=== PATIENT | male | born 1950 | race Caucasian/White ===

== ENCOUNTER 2016-09-03 23:28 | Emergency (ER) | payer MEDICARE ==
[2016-09-04] MEDS ORDERED: NS 0.9% 1000 ML* 1,000 ML IV ONE (00:15)
[2016-09-04] MEDS ORDERED: Ondansetron INJ* 2 MG/ML VIAL IV ONE (00:15)
[2016-09-04] MEDS ORDERED: Morphine INJ* 2 MG/ML 1 ML SYRINGE IV ONE (00:15)
[2016-09-04 01:01] LABS: Hematocrit 47 % (42-52); Hemoglobin 15.8 g/dl (14.0-18.0); Mean Corpuscular HGB Conc 33 g/dl (31-36); Mean Corpuscular Hemoglobin 30 pg (27-31); Mean Corpuscular Volume 88 fL (80-94); Mean Platelet Volume 9 um3 (7.4-10.4); Red Blood Count 5.34 10^6/ul (4.0-5.4); Red Cell Distribution Width 13 % (10.5-15); White Blood Count 14.5 10^3/ul (3.5-10.8)
[2016-09-04 01:08] LABS: Add Diff/Slide Review? Slide Review Added; Comments Flag Yes
[2016-09-04 01:14] LABS: Albumin 4.3 g/dL (3.2-5.2); BUN/Creatinine Ratio 20.7 (8-20); C Reactive Protein 7.63 mg/L (< 5.00); Calcium 10.1 mg/dL (8.6-10.3); EGFR African American 112.9 (>60); EGFR Non-African American 87.8 (>60); Globulin 2.8 g/dL (2-4); Potassium 3.9 mmol/L (3.5-5.0); Total Bilirubin 0.4 mg/dL (0.2-1.0); Total Protein 7.1 g/dL (6.4-8.9)
[2016-09-04 01:15] LABS: Urine Bilirubin Negative (Negative); Urine Glucose Negative (Negative); Urine Nitrite Negative (Negative)
--- NOTE | 2016-09-04 02:07 | ED ---
Surinder Solis Salem, scribed for Talon Jansen MD on 09/04/16 at 0027 . Abdominal Pain/Male - HPI Summary HPI Summary: Patient is a 66 y/o M who presents to the ED with epigastric pressure for the past 6 days. He states that his abd feels like it is about to explode. Pt reports taking Tums and antacid with little to no alleviation. He states that he contacted his PCP 2 days ago, but was not able to get an appointment and was sent here. He reports PMHx of an ulcer, but states that he does not typically have a problem with it. Pt has not seen actuarial science professor in 15 years. - History of Current Complaint Chief Complaint: EDAbdPain Stated Complaint: ABD PAIN Time Seen by Provider: 09/04/16 00:08 Hx Obtained From: Patient, Family/Supervisor In Charge Onset/Duration: Gradual Onset, Lasting Days, Still Present Timing: Lasting Days Severity Initially: Moderate Severity Currently: Moderate Pain Intensity: 7 Pain Scale Used: 0-10 Numeric Location: Epigastric Radiates: No Aggravating Factor(s): Nothing Alleviating Factor(s): Nothing Associated Signs And Symptoms: Positive: Negative - Allergies/Home Medications Allergies/Adverse Reactions: Allergies Allergy/AdvReac Type Severity Reaction Status Date / Time No Known Allergies Allergy Unverified 09/03/16 23:39 PMH/Surg Hx/FS Hx/Imm Hx Endocrine/Hematology History: Reports: Hx Diabetes Denies: Hx Thyroid Disease Cardiovascular History: Reports: Hx Angina, Hx Coronary Artery Disease - 2 STENTS Denies: Hx Hypercholesterolemia, Hx Hypertension, Hx Pacemaker/ICD, Hx Peripheral Vascular Disease, Other Cardiovascular Problems/Disorders Respiratory History: Denies: Hx Asthma GI History: Denies: Other GI Disorders History: Denies: Hx Renal Disease Musculoskeletal History: Denies: Hx Arthritis, Hx Rheumatoid Arthritis, Hx Osteoporosis Sensory History: Reports: Hx Contacts or Glasses - GLASSES Denies: Hx Cataracts, Hx Glaucoma, Hx Hearing Aid Opthamlomology History: Reports: Hx Contacts or Glasses - GLASSES Denies: Hx Cataracts, Hx Glaucoma Neurological History: Denies: Hx Headaches, Hx Seizures, Hx Transient Ischemic Attacks (TIA) Psychiatric History: Denies: Hx Anxiety, Hx Depression, Hx Panic Disorder - Cancer History Cancer Type, Location and Year: MELANOMA OF FACE/LIP REMOVED - Surgical History Surgery Procedure, Year, and Place: appendix 1966,. JANICE SHELL - CARDIAC STENT - SAFE FOR 1.5T ONLY, 1985 AND 1986. 2004, [facility]IL[facility]ECTOMY, [facility] Hx Anesthesia Reactions: No Infectious Disease History: Denies: Traveled Outside the [place] in Last 30 Days - Family History Known Family History: Positive: Cardiac Disease - Father. , Diabetes - Social History Alcohol Use: None Hx Substance Use: No Substance Use Type: Reports: None Hx Tobacco Use: Yes Smoking Status (MU): Current Every Day Smoker Amount Used/How Often: PACK A DAY Have You Smoked in the Last Year: Yes Review of Systems Negative: Fever Positive: Abdominal Pain All Other Systems Reviewed And Are Negative: Yes Physical Exam Triage Information Reviewed: Yes Vital Signs On Initial Exam: Initial Vitals Temp Pulse Resp BP Pulse Ox 97.4 F 92 16 103/73 93 09/03/16 23:30 09/03/16 23:30 09/03/16 23:30 09/03/16 23:30 09/03/16 23:30 Vital Signs Reviewed: Yes Appearance: Positive: Well-Appearing, No Pain Distress Skin: Positive: Warm Head/Face: Positive: Normal Head/Face Inspection Eyes: Positive: TEMO ENT: Positive: Hearing grossly normal Neck: Positive: Supple Respiratory/Lung Sounds: Positive: Breath Sounds Present Cardiovascular: Positive: RRR Abdomen Description: Positive: Soft, Other: - mild upper abd tenderness. Negative: Distended, Guarding Bowel Sounds: Positive: Present Musculoskeletal: Positive: Strength/ROM Intact Neurological: Positive: Alert, Oriented to Person Place, Time Diagnostics - Vital Signs Vital Signs Temp Pulse Resp BP Pulse Ox 09/03/16 23:30 97.4 F 92 16 103/73 93 - Laboratory Lab Results: Lab Results 09/04/16 09/04/16 09/04/16 Range/Units 00:50 00:50 00:50 WBC 14.5 H (3.5-10.8) 10^3/ul RBC 5.34 (4.0-5.4) 10^6/ul Hgb 15.8 (14.0-18.0) g/dl Hct 47 (42-52) % MCV 88 (80-94) fL MCH 30 (27-31) pg MCHC 33 (31-36) g/dl RDW 13 (10.5-15) % Plt Count 255 (150-450) 10^3/ul MPV 9 (7.4-10.4) um3 Neut % (Auto) 65.0 (38-83) % Lymph % (Auto) 20.7 L (25-47) % [place] % (Auto) 10.9 H (1-9) % Eos % (Auto) 2.6 (0-6) % Baso % (Auto) 0.8 (0-2) % Absolute Neuts (auto) 9.4 H (1.5-7.7) 10^3/ul Absolute Lymphs (auto) 3.0 (1.0-4.8) 10^3/ul Absolute Monos (auto) 1.6 H (0-0.8) 10^3/ul Absolute Eos (auto) 0.4 (0-0.6) 10^3/ul Absolute Basos (auto) 0.1 (0-0.2) 10^3/ul Absolute Nucleated RBC 0.01 10^3/ul Nucleated RBC % 0 Sodium 135 (133-145) mmol/L Potassium 3.9 (3.5-5.0) mmol/L Chloride 105 (101-111) mmol/L Carbon Dioxide 22 (22-32) mmol/L Anion Gap 8 (2-11) mmol/L BUN 18 (6-24) mg/dL Creatinine 0.87 (0.67-1.17) mg/dL Est GFR ( Amer) 112.9 (>60) Est GFR (Non-Af Amer) 87.8 (>60) BUN/Creatinine Ratio 20.7 H (8-20) Glucose 130 H (70-100) mg/dL Lactic Acid (0.5-2.0) mmol/L Calcium 10.1 (8.6-10.3) mg/dL Total Bilirubin 0.40 (0.2-1.0) mg/dL AST 16 (13-39) U/L ALT 15 (7-52) U/L Alkaline Phosphatase 71 (34-104) U/L C-Reactive Protein 7.63 H (< 5.00) mg/L Total Protein 7.1 (6.4-8.9) g/dL Albumin 4.3 (3.2-5.2) g/dL Globulin 2.8 (2-4) g/dL Albumin/Globulin Ratio 1.5 (1-3) Lipase 118 H (11.0-82.0) U/L Urine Color Yellow Urine Appearance Clear Urine pH 5.0 (5-9) Ur Specific [place] 1.016 (1.010-1.030) Urine Protein Negative (Negative) Urine Ketones Negative (Negative) Urine Blood Negative (Negative) Urine Nitrate Negative (Negative) Urine Bilirubin Negative (Negative) Urine Urobilinogen Negative (Negative) Ur Leukocyte Esterase Negative (Negative) Urine Glucose Negative (Negative) 09/04/16 Range/Units 00:50 WBC (3.5-10.8) 10^3/ul RBC (4.0-5.4) 10^6/ul Hgb (14.0-18.0) g/dl Hct (42-52) % MCV (80-94) fL MCH (27-31) pg MCHC (31-36) g/dl RDW (10.5-15) % Plt Count (150-450) 10^3/ul MPV (7.4-10.4) um3 Neut % (Auto) (38-83) % Lymph % (Auto) (25-47) % [place] % (Auto) (1-9) % Eos % (Auto) (0-6) % Baso % (Auto) (0-2) % Absolute Neuts (auto) (1.5-7.7) 10^3/ul Absolute Lymphs (auto) (1.0-4.8) 10^3/ul Absolute Monos (auto) (0-0.8) 10^3/ul Absolute Eos (auto) (0-0.6) 10^3/ul Absolute Basos (auto) (0-0.2) 10^3/ul Absolute Nucleated RBC 10^3/ul Nucleated RBC % Sodium (133-145) mmol/L Potassium (3.5-5.0) mmol/L Chloride (101-111) mmol/L Carbon Dioxide (22-32) mmol/L Anion Gap (2-11) mmol/L BUN (6-24) mg/dL Creatinine (0.67-1.17) mg/dL Est GFR ( Amer) (>60) Est GFR (Non-Af Amer) (>60) BUN/Creatinine Ratio (8-20) Glucose (70-100) mg/dL Lactic Acid 1.4 (0.5-2.0) mmol/L Calcium (8.6-10.3) mg/dL Total Bilirubin (0.2-1.0) mg/dL AST (13-39) U/L ALT (7-52) U/L Alkaline Phosphatase (34-104) U/L C-Reactive Protein (< 5.00) mg/L Total Protein (6.4-8.9) g/dL Albumin (3.2-5.2) g/dL Globulin (2-4) g/dL Albumin/Globulin Ratio (1-3) Lipase (11.0-82.0) U/L Urine Color Urine Appearance Urine pH (5-9) Ur Specific [place] (1.010-1.030) Urine Protein (Negative) Urine Ketones (Negative) Urine Blood (Negative) Urine Nitrate (Negative) Urine Bilirubin (Negative) Urine Urobilinogen (Negative) Ur Leukocyte Esterase (Negative) Urine Glucose (Negative) Result Diagrams: 09/04/16 00:50 09/04/16 00:50 Lab Statement: Any lab studies that have been ordered have been reviewed, and results considered in the medical decision making process. - CT Abd/Pelvis CT Interpretation Completed By: Radiologist - IMPRESSION: No definite evidence of acute pathology. - EKG 2340 EKG Interpretation: Sinus rhythm with APC's @ 87 bpm. Re-Evaluation - Re-Evaluation First Eval Change: Improved - results d/w pt Abdominal Pain Fem Course/Dx - Course Course Of Treatment: 66 y/o M presents with epigastric pressure for the past 6 days. Pt reports taking Tums and antacid with little to no alleviation. He reports PMHx of an ulcer. He received fluids, Morphine, and Zofran in ED course. EKG shows Sinus rhythm with APC's @ [address] shows, per radiology, IMPRESSION: No definite evidence of acute pathology. Pt will be DC'd. - Diagnoses Provider Diagnoses: Abdominal pain Discharge - Discharge Plan Condition: Stable Disposition: HOME Patient Education Materials: Abdominal Pain (ED) Referrals: Bill Deshpande MD [Primary Care Provider] - Additional Instructions: Please follow up with your primary care provider. The documentation as recorded by the Surinder lay Salem accurately reflects the service I personally performed and the decisions made by me, Talon Jansen MD.
[2016-09-04] MEDS ORDERED: Iodixanol* (CONTRAST) 320 MG/ML 100 ML SDV IV ONE (03:23)
[2016-09-04 03:58] VITALS: BP 112/51
--- NOTE | 2016-09-04 08:14 | RAD ---
CLINICAL HISTORY: Abdominal pain COMPARISON: August 06, 2008 TECHNIQUE: Multiple contiguous axial CT scans were obtained of the abdomen and pelvis after the administration of intravenous contrast. Coronal and sagittal multiplanar reformations are submitted for review. Oral contrast was administered. Delayed images were obtained through the abdomen and pelvis. FINDINGS: LUNG BASES: The lung bases are clear. LIVER: The liver is diffusely low in attenuation compared to the spleen. There are no focal hepatic parenchymal masses. There is a Marya's lobe BILE DUCTS: There is no intrahepatic or extrahepatic biliary dilatation. GALLBLADDER: The gallbladder is normal, without pericholecystic inflammatory change. PANCREAS: The pancreas is normal, without mass or ductal dilatation. SPLEEN: Normal in size and appearance. UPPER GI TRACT: Evaluation of the gastrointestinal tract is limited by incomplete gastric distention. The upper GI tract is unremarkable. SMALL BOWEL AND MESENTERY: The small bowel is normal in contour, course, and caliber. There is no obstruction or dilatation. COLON: The colon is normal in contour, course, caliber. There is no pericolonic inflammatory change. ADRENALS: Normal bilaterally. KIDNEYS: A simple renal cyst is noted on the left. There is no appreciable hydronephrosis or nephrolithiasis. BLADDER: The bladder is smooth in contour. PELVIC ORGANS: The prostate is diffusely enlarged. The seminal vesicles are symmetric. AORTA: There is calcific atherosclerotic disease of the abdominal aorta and its branches, without aneurysmal dilatation IVC: Unremarkable LYMPH NODES: There is no lymphadenopathy by size criteria. ABDOMINAL WALL: There is no evidence for abdominal wall hernia. BONES AND SOFT TISSUES: Degenerative changes are noted OTHER: None IMPRESSION: 1. ENLARGED PROSTATE. 2. FATTY LIVER. 3. ATHEROSCLEROSIS. 4. NO ACUTE CT PATHOLOGY OF THE VISUALIZED PORTION OF THE ABDOMEN AND PELVIS.
== END 2016-09-04 04:09 | disposition home or self-care (01) ==
LOC: ED 23:28
DX: R10.9 Unspecified abdominal pain (principal); F17.210 Nicotine dependence, cigarettes, uncomplicated
CPT/HCPCS: 36415; 74177; 80053; 81003; 83605; 83690; 85025; 86140; 93005; 96374; 96375; 99282; J2270; J2405; Q9967

== ENCOUNTER 2017-06-06 16:37 | Emergency (ER) | payer MEDICARE ==
--- NOTE | 2017-06-06 20:13 | RAD ---
INDICATION: Painless right scrotal enlargement COMPARISON: CT abdomen pelvis dated September 22, 2016 TECHNIQUE: Duplex interrogation of the scrotum was performed. FINDINGS: The testicles are normal in size and echogenicity. There is no evidence for testicular mass. The right testis measures 4.9 x 3.3 x 3.4 cm and the left 4.8 x 3.0 x 3.4 cm. There is symmetric flow on Doppler interrogation. Arterial and venous waveforms are identified bilaterally. There is relative increased vascularity overlying the right epididymis relative to the left. The right epididymal head measures 1.8 x 0.8 cm and the left 1.3 x 1.1 cm. There is a large right-sided hydrocele with multiple echogenic foci in the dependent portion. Along the anterior wall of the scrotum is an echogenic and mildly vascular lesion measuring 0.6 x 1.0 x 0.5 cm. There are no varicoceles. IMPRESSION: 1. There is a large right-sided hydrocele and a mildly vascular echogenic nodule adherent to the anterior inner scrotal wall measuring a centimeter in greatest dimension. The differential diagnosis is lengthy including benign lesions such as a leiomyoma or neurofibroma and malignant lesions including liposarcoma, leiomyosarcoma or rhabdomyosarcoma. 2. Relative increase of vascular flow in the otherwise normal-appearing right epididymis could be seen in the setting of epididymitis.
[2017-06-06 20:38] VITALS: BP 151/79
--- NOTE | 2017-06-08 11:31 | ED ---
Rosas Solis Rebecca, scribed for Jerad Canas MD on 06/06/17 at 1935 . GI/ HPI - HPI Summary HPI Summary: Pt is a 66 y/o M referred from [facility] who presents to ED c/o right testicular swelling. Symptoms have been present for 2 days and are without pain , ranking associated pain 0/10. Denies hematuria, fever, edema, CP and SOB. Confirms he has been urinating regularly. No recent changes in medication or lotion. NKDA or allergies to fabrics. PMHx DM - on insulin, BG has been intermittently high recently, though today it was normal. - History of Current Complaint Chief Complaint: EDUrogenitalProblems Time Seen by Provider: 06/06/17 19:04 Stated Complaint: ENLARGE TESTICAL Hx Obtained From: Patient Onset/Duration: Started Days Ago - 2 days, Still Present Current Severity: None Pain Intensity: 0 Location of Pain: None Associated Signs and Symptoms: Positive: Other: - Right testicular swelling Aggravating Factor(s): Nothing Alleviating Factor(s): Nothing - Allergy/Home Medications Allergies/Adverse Reactions: Allergies Allergy/AdvReac Type Severity Reaction Status Date / Time No Known Allergies Allergy Unverified 06/06/17 16:53 PMH/Surg Hx/FS Hx/Imm Hx Endocrine/Hematology History: Reports: Hx Diabetes Denies: Hx Thyroid Disease Cardiovascular History: Reports: Hx Angina, Hx Coronary Artery Disease - 2 STENTS Denies: Hx Hypercholesterolemia, Hx Hypertension, Hx Pacemaker/ICD, Hx Peripheral Vascular Disease, Other Cardiovascular Problems/Disorders Respiratory History: Denies: Hx Asthma GI History: Denies: Other GI Disorders History: Denies: Hx Dialysis, Hx Kidney Stones, Hx Renal Disease Musculoskeletal History: Denies: Hx Arthritis, Hx Rheumatoid Arthritis, Hx Osteoporosis Sensory History: Reports: Hx Contacts or Glasses - GLASSES Denies: Hx Cataracts, Hx Glaucoma, Hx Hearing Aid Opthamlomology History: Reports: Hx Contacts or Glasses - GLASSES Denies: Hx Cataracts, Hx Glaucoma Neurological History: Denies: Hx Headaches, Hx Seizures, Hx Transient Ischemic Attacks (TIA) Psychiatric History: Denies: Hx Anxiety, Hx Depression, Hx Panic Disorder - Cancer History Cancer Type, Location and Year: MELANOMA OF FACE/LIP REMOVED - Surgical History Surgery Procedure, Year, and Place: appendix 1965,. JANICE SHELL - CARDIAC STENT - SAFE FOR 1.5T ONLY, 1985 AND 1986. 2004, VERMILIONECTOMY, [facility] Hx Anesthesia Reactions: No Infectious Disease History: No Infectious Disease History: Denies: Traveled Outside the [place] in Last 30 Days - Family History Known Family History: Positive: Cardiac Disease - Father. , Diabetes - Social History Alcohol Use: None Hx Substance Use: No Substance Use Type: Reports: None Hx Tobacco Use: Yes Smoking Status (MU): Light Every Day Tobacco Smoker Type: Cigarettes Amount Used/How Often: 10/day Have You Smoked in the Last Year: Yes Review of Systems Negative: Fever Negative: Chest Pain Negative: Shortness Of Breath Positive: other - R tesitular swelling. Negative: hematuria, pain Negative: Edema All Other Systems Reviewed And Are Negative: Yes Physical Exam - Summary Physical Exam Summary: Appearance: Well appearing, no pain distress Skin: warm, dry, reflects adequate perfusion Head/face: normal Eyes: EOMI, TEMO ENT: normal Neck: supple, non-tender Respiratory: CTA, breath sounds present Cardiovascular: RRR, pulses symmetrical Abdomen: non-tender, soft Bowel Sounds: present Musculoskeletal: normal, strength/ROM intact, no lower extremity edema Neuro: normal, sensory motor intact, A&Ox3 Inguinal: The right testicle is enlarged with no tenderness and no epididymal tenderness. There is no thickening of the skin and no significant redness. Triage Information Reviewed: Yes Vital Signs On Initial Exam: Initial Vitals Temp Pulse Resp BP Pulse Ox 97.8 F 89 15 115/72 94 06/06/17 16:49 06/06/17 16:49 06/06/17 16:49 06/06/17 16:49 06/06/17 16:49 Vital Signs Reviewed: Yes Diagnostics - Vital Signs Vital Signs Temp Pulse Resp BP Pulse Ox 06/06/17 16:49 97.8 F 89 15 115/72 94 - Laboratory Lab Statement: Any lab studies that have been ordered have been reviewed, and results considered in the medical decision making process. - Ultrasound No standard instances Ultrasound Interpretation: Positive (See Comments) - 1. There is a large right- sided hydrocele and a mildly vascular echogenic nodule adherent to the anterior inner scrotal wall measuring a centimeter in greatest dimension. The differential diagnosis is lengthy including benign lesions such as a leiomyoma or neurofibroma and malignant lesions including liposarcoma, leiomyosarcoma or rhabdomyosarcoma. 2. Relative increase of vascular flow in the otherwise normal- appearing right epididymis could be seen in the setting of epididymitis. ED physician reviewed this radiology report. Ultrasound Interpretation Completed By: Radiologist Re-Evaluation - Re-Evaluation First Eval Re-Evaluation Time: 20:24 Comment: Discussed US results with the pt. He is doing well. GIGU Course/Dx - Course Course Of Treatment: Pt without pain but R testicular enlargement. Has 1cm mass seen on US with large hydrocele. Discussed with his urologist who will follow him up promptly. - Diagnoses Provider Diagnoses: Testicular mass, Hydrocele - Physician Notifications Discussed Care Of Patient With: David Lopez Time Discussed With Above Provider: 20:48 Instructed by Provider To: Other - Discussed the case, as he is the pt's urologist, and requested Doxycycline in palce of Cipro. Discharge - Sign-Out/Discharge Documenting (check all that apply): Discharge - Discharge - Discharge Plan Condition: Good Disposition: HOME Prescriptions: DOXYcycline CAP(*) [DOXYcycline 100MG CAP(*)] 100 mg PO BID #20 cap Patient Education Materials: Testicular Cancer (DC) Referrals: Bill Deshpande MD [Primary Care Provider] - David Lopez MD [Medical Doctor] - Additional Instructions: There is a mass on the testicle as discussed. This has not yet been defined, but cancer is possible. Your Urologosit will follow up as soon as possible. Return with fever, uncontrolled sugars, worse or other concerns. - Billing Disposition and Condition Condition: GOOD Disposition: HOME The documentation as recorded by the Rosas lay Rebecca accurately reflects the service I personally performed and the decisions made by me, Jerad Canas MD.
== END 2017-06-06 20:37 | disposition home or self-care (01) ==
LOC: ED 16:37
DX: N43.3 Hydrocele, unspecified (principal); N50.9 Disorder of male genital organs, unspecified; F17.210 Nicotine dependence, cigarettes, uncomplicated; E11.8 Type 2 diabetes mellitus with unspecified complications; Z79.4 Long term (current) use of insulin
CPT/HCPCS: 76870; 99282

== ENCOUNTER 2019-03-31 10:49 | Day surgery (SDC) | payer MEDICARE ==
[~2019-03-31 10:49] MED LIST: Acetaminophen TAB* 325 MG PO PRN; Buffered Lidocaine 1% SYRIN* 1 ML/SYRINGE INTRADERM ONE; DiMENhydriNATE IV* 50 MG/ML VIAL IV PUSH ONE; Famotidine IV* 10 MG/ML 2 ML (20 mg) IV ONE; Lactated Ringers 1000 ML Bag* 1,000 ML IV SCH; Naloxone* 0.4 MG/ML 1 ML VIAL IV PRN; Ondansetron ODT TAB* 4 MG PO ONE; PROCHLORPERAZINE INJ 5 MG/ML 2 ML VIAL IV PRN; fentaNYL* 50 MCG/ML 2 ML VIAL (100 MCG VIAL) IV PRN; oxyCODONE TAB* 5 MG TAB PO PRN
[2019-03-31] MEDS ORDERED: Famotidine IV* 10 MG/ML 2 ML (20 mg) ONE (11:53)
[2019-03-31] MEDS ORDERED: DiMENhydriNATE IV* 50 MG/ML VIAL ONE (11:53)
[2019-03-31] MEDS ORDERED: Ondansetron ODT TAB* 4 MG ONE (11:53)
[2019-03-31] MEDS ORDERED: ceFAZolin 2 GM PREMIX in ORs 2 GM/50 ML BAG ONE (11:53)
[2019-03-31] MEDS ORDERED: fentaNYL* 50 MCG/ML 2 ML VIAL (100 MCG VIAL) ONE (12:20)
[2019-03-31] MEDS ORDERED: KETAMINE HCL* 50 MG/ML 10 ML VIAL ONE (12:21)
[2019-03-31] MEDS ORDERED: Midazolam* 1 MG/ML 5 ML VIAL (5 MG) ONE (12:21)
[2019-03-31] MEDS ORDERED: Bupivacaine 0.25% SDV* 30 ML ONE (13:27)
[2019-03-31] MEDS ORDERED: Lidocaine 1% w EPI 1:100,000* MDV 20 ML VIAL ONE (13:27)
[2019-03-31] MEDS ORDERED: Propofol* 10 MG/ML 20 ML BTL ONE (15:07)
[2019-03-31] MEDS ORDERED: Lidocaine 2% PF * 5 ML VIAL ONE (15:07)
[2019-03-31 16:15] VITALS: BP 111/69
== END 2019-03-31 16:24 | disposition home or self-care (01) ==
LOC: OR 10:49
PROVIDERS: ATTEND Plastic Surgery
DX: C44.622 Squamous cell carcinoma of skin of right upper limb, including shoulder (principal); M65.321 Trigger finger, right index finger; E11.9 Type 2 diabetes mellitus without complications; Z79.84 Long term (current) use of oral hypoglycemic drugs; F17.210 Nicotine dependence, cigarettes, uncomplicated; I25.10 Atherosclerotic heart disease of native coronary artery without angina pectoris; E78.5 Hyperlipidemia, unspecified; Z85.828 Personal history of other malignant neoplasm of skin
CPT/HCPCS: 88305; 88329; A9270-GY; J0690; J1240; J2250; J2704; J3010; J3490

== ENCOUNTER 2019-04-18 07:05 | Emergency (ER) | payer MEDICARE ==
[2019-04-18 07:23] VITALS: BP 114/71
[2019-04-18] MEDS ORDERED: Mupirocin 2% OINT* TUBE TOPICAL ONE (07:31)
--- NOTE | 2019-04-18 07:35 | UC ---
Skin Complaint HPI - HPI Summary HPI Summary: 68-year-old male comes in with a chief complaint of a rash that's itchy on his right hand and right forearm. Also irritation of the left eye. Noticed some drainage from the left eye this morning wonders if he has conjunctivitis. No upper respiratory tract infection symptoms. 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 He's been using triple antibiotic ointment. Both these wounds and started to itch and there is erythema around them. The serous drainage from the wound on the hand. No fevers no chills. - History of Current Complaint Chief Complaint: UCRash Time Seen by Provider: 04/18/19 07:16 Stated Complaint: RASH ON ARM, EYE PROBLEM Pain Intensity: 4 - Allergy/Home Medications Allergies/Adverse Reactions: Allergies Allergy/AdvReac Type Severity Reaction Status Date / Time bacitracin Allergy Rash And Verified 04/18/19 07:37 [From Triple Antibiotic] Itching neomycin Allergy Rash And Verified 04/18/19 07:37 [From Triple Antibiotic] Itching polymyxin B Allergy Rash And Verified 04/18/19 07:37 [From Triple Antibiotic] Itching Home Medications: Home Medications Aspirin EC TAB* [Ecotrin EC Low Dose 81 MG*] 81 mg PO QAM 12/30/12 [History Confirmed 04/18/19] Atorvastatin* [Lipitor*] 40 mg PO BEDTIME 12/30/12 [History Confirmed 04/18/19] Metformin HCl [Metformin HCl ER] 1,000 mg PO BID 12/30/12 [History Confirmed ] Metoprolol Succinate XL TAB* [Toprol XL TAB*] 25 mg PO QAM 12/30/12 [History Confirmed 04/18/19] Insulin Detemir [Levemir Flextouch] 30 unit SUBCON BEDTIME 09/29/16 [History Confirmed 04/18/19] Cholecalciferol (Vitamin D3) [Vitamin D3] 2,000 unit PO QAM 10/08/18 [History Confirmed 04/18/19] Empaglifozin (NF) [Jardiance] 25 mg PO QAM 10/08/18 [History Confirmed 04/18/19] Ibuprofen 400 mg PO ONCE PRN 04/18/19 [History Confirmed 04/18/19] Sulfacetamide Sodium [Bleph-10] 2 drop OPHTHALMIC Q4HR #1 bottle 04/18/19 [Rx] PMH/Surg Hx/FS Hx/Imm Hx Previously Healthy: Yes Endocrine History: Diabetes, Dyslipidemia Cardiovascular History: Hypertension - Surgical History Surgical History: Yes Surgery Procedure, Year, and Place: appendix 1966,. JANICE SHELL - CARDIAC STENT - SAFE FOR 1.5T ONLY, 1985 AND 1986. 2004, VERMILIONECTOMY, [facility]. right ring finger trigger finger release 2017. skin graft right arm to right hand trigger finger - Family History Known Family History: Positive: Cardiac Disease - Father. , Diabetes - Social History Alcohol Use: None Substance Use Type: None Smoking Status (MU): Heavy Every Day Tobacco Smoker Type: Cigarettes Amount Used/How Often: 10/day 50 years Have You Smoked in the Last Year: Yes Household Exposure Type: Cigarettes Review of Systems All Other Systems Reviewed And Are Negative: Yes Constitutional: Positive: Negative Skin: Positive: Other - SEE HPI Eyes: Positive: Drainage - LEFT, Eye Redness - LEFT ENT: Positive: Negative Respiratory: Positive: Negative Cardiovascular: Positive: Negative Gastrointestinal: Positive: Negative Motor: Positive: Negative Neurovascular: Positive: Negative Musculoskeletal: Positive: Negative Neurological/Mental Status: Positive: Negative Psychological: Positive: Negative Is Patient Immunocompromised?: No Physical Exam Triage Information Reviewed: Yes Appearance: Well-Appearing, No Pain Distress, Well-Nourished Vital Signs: Initial Vital Signs Temp 98.9 F 04/18/19 07:20 Pulse 86 04/18/19 07:20 Resp 18 04/18/19 07:20 BP 114/71 04/18/19 07:20 Pulse Ox 95 04/18/19 07:20 Vital Signs Reviewed: Yes Eyes: Positive: Conjunctiva Inflamed - LEFT, Discharge - LEFT ENT: Negative: Nasal drainage Neck: Positive: Supple Respiratory: Positive: No respiratory distress Musculoskeletal: Positive: Strength Intact, ROM Intact Neurological: Positive: Alert, Muscle Tone Normal Psychological: Positive: Normal Response To Family, Age Appropriate Behavior Skin: Positive: Other - Dorsum of the right hand there is a healing wound that does have some serous drainage there is erythema surrounding it. The right forearm is a healing wound that's linear that has similar raised erythema surrounding it on the anterior forearm. Course/Dx - Course Course Of Treatment: Because the rashes. Reticulocyte and appears more allergic inform I believe the patient's having a reaction to the triple antibiotic ointment. I asked him to stop the triple at about payment and were replacing that with mupirocin. Patient has a appointment with plastics scheduled for April 20, 2019. I asked the patient to contact the plastic surgeon today to determine if they want to see him sooner. The eye may be a conjunctivitis from an infectious cause or it may be that he got some with mupirocin into the left side he's having a reaction to it. I'm prescribing Bleph-10 for the left eye conjunctivitis. Patient will follow-up with his primary care doctor or channel rebuilder if not completely improved. - Diagnoses Provider Diagnosis: Rash, Left conjunctivitis Discharge ED - Sign-Out/Discharge Documenting (check all that apply): Patient Departure All imaging exams completed and their final reports reviewed: No Studies - Discharge Plan Condition: Stable Disposition: HOME Prescriptions: Sulfacetamide Sodium [Bleph-10] 2 drop OPHTHALMIC Q4HR #1 bottle Patient Education Materials: Acute Rash (ED), Conjunctivitis (ED) Referrals: Bill Deshpande MD [Primary Care Provider] - Talon Titus MD [Medical Doctor] - Additional Instructions: FOLLOW UP WITH DR TITUS TODAY. STOP USING THE TRIPLE ANTIBIOTIC OINTMENT YOU MAY BE HAVING A REACTION TO THE NEOMYCIN IN THE TRIPLE ANTIBIOTIC OINTMENT GET REEVALUATED SOONER IF NOT IMPROVED OR WORSE OR ANY QUESTIONS OR CONCERNS. - Billing Disposition and Condition Condition: STABLE Disposition: Home
== END 2019-04-18 07:57 | disposition home or self-care (01) ==
LOC: UCEAST 07:05
DX: R21 Rash and other nonspecific skin eruption (principal); H10.9 Unspecified conjunctivitis; E11.9 Type 2 diabetes mellitus without complications; I10 Essential (primary) hypertension; E78.5 Hyperlipidemia, unspecified; F17.210 Nicotine dependence, cigarettes, uncomplicated; Z88.1 Allergy status to other antibiotic agents; Z79.82 Long term (current) use of aspirin; Z79.84 Long term (current) use of oral hypoglycemic drugs; Z79.899 Other long term (current) drug therapy
CPT/HCPCS: 99212; G0463

== ENCOUNTER 2019-04-19 07:59 | Emergency (ER) | payer MEDICARE ==
[2019-04-19 09:15] VITALS: BP 117/71
--- NOTE | 2019-04-19 17:24 | ED ---
Skin Complaint - HPI Summary HPI Summary: Pt. is a 68 y.o male who presents to the ER For rash x several days. Pt. notes he had skin cancer removed from his right hand and skin graft placed about 3 weeks ago. Pt. notes he was using a triple antibiotic ointment on wounds. Pt. states he then developed an itchy rash to right arm. He was seen at and by sx yesterday and was switched to bactroban. Pt. presents today because rash is spreading to trunk and face. Denies throat swelling/difficulty breathing or swallowing. Took benadryl [employer]. Sxs are mild in severity. No current modifying factors. - History of Current Complaint Chief Complaint: EDRashSkinAbscess Time Seen by Provider: 04/19/19 08:14 Stated Complaint: POSS REACTION TO MEDS PER PT Hx Obtained From: Patient Pain Intensity: 0 Pain Scale Used: 0-10 Numeric - Allergy/Home Medications Allergies/Adverse Reactions: Allergies Allergy/AdvReac Type Severity Reaction Status Date / Time bacitracin Allergy Rash And Verified 04/18/19 07:37 [From Triple Antibiotic] Itching neomycin Allergy Rash And Verified 04/18/19 07:37 [From Triple Antibiotic] Itching polymyxin B Allergy Rash And Verified 04/18/19 07:37 [From Triple Antibiotic] Itching Home Medications: Home Medications Aspirin EC TAB* [Ecotrin EC Low Dose 81 MG*] 81 mg PO DAILY 12/30/12 [History Confirmed 04/19/19] Atorvastatin* [Lipitor*] 40 mg PO BEDTIME 12/30/12 [History Confirmed 04/19/19] Metformin HCl [Metformin HCl ER] 1,000 mg PO BID 12/30/12 [History Confirmed ] Metoprolol Succinate XL TAB* [Toprol XL TAB*] 25 mg PO QAM 12/30/12 [History Confirmed 04/19/19] Insulin Detemir [Levemir Flextouch] 30 unit SUBCUT DAILY 09/29/16 [History Confirmed 04/19/19] Cholecalciferol (Vitamin D3) [Vitamin D3] 2,000 unit PO DAILY 10/08/18 [History Confirmed 04/19/19] Empaglifozin (NF) [Jardiance] 25 mg PO DAILY 10/08/18 [History Confirmed ] predniSONE 50 mg TAB [Deltasone 50 mg TAB] 50 mg PO DAILY #5 tab 04/19/19 [Rx] PMH/Surg Hx/FS Hx/Imm Hx Previously Healthy: Yes Endocrine/Hematology History: Reports: Hx Diabetes - TYPE 2 Denies: Hx Thyroid Disease Cardiovascular History: Reports: Hx Angina, Hx Coronary Artery Disease - 2 stents RCA in the , Hx Hypertension Denies: Hx Hypercholesterolemia, Hx Pacemaker/ICD, Hx Peripheral Vascular Disease, Other Cardiovascular Problems/Disorders Respiratory History: Denies: Hx Asthma GI History: Reports: Hx Ulcer - duodenum - healed, Other GI Disorders - pancreatitis History: Reports: Hx Kidney Stones - once- long ago Denies: Hx Dialysis, Hx Renal Disease Musculoskeletal History: Denies: Hx Arthritis, Hx Rheumatoid Arthritis, Hx Osteoporosis Sensory History: Reports: Hx Contacts or Glasses - GLASSES Denies: Hx Cataracts, Hx Glaucoma, Hx Hearing Aid Opthamlomology History: Reports: Hx Contacts or Glasses - GLASSES Denies: Hx Cataracts, Hx Glaucoma Neurological History: Denies: Hx Headaches, Hx Seizures, Hx Transient Ischemic Attacks (TIA) Psychiatric History: Denies: Hx Anxiety, Hx Depression, Hx Panic Disorder - Cancer History Cancer Type, Location and Year: MELANOMA OF FACE/LIP REMOVED Hx Chemotherapy: No - Surgical History Surgery Procedure, Year, and Place: appendix 1965,. JANICE SHELL - CARDIAC STENT - SAFE FOR 1.5T ONLY, 1985 AND 1986. 2004, VERMILIONECTOMY, [facility]. right ring finger trigger finger release 2016. skin graft right arm to right hand trigger finger Hx Anesthesia Reactions: No Infectious Disease History: No Infectious Disease History: Denies: Traveled Outside the [place] in Last 30 Days - Family History Known Family History: Positive: Cardiac Disease - Father. , Diabetes - Social History Occupation: Retired Lives: With Family Alcohol Use: None Hx Substance Use: No Substance Use Type: Reports: None Hx Tobacco Use: Yes Smoking Status (MU): Heavy Every Day Tobacco Smoker Type: Cigarettes Amount Used/How Often: 10/day 50 years Have You Smoked in the Last Year: Yes Review of Systems Constitutional: Negative ENT: Negative Cardiovascular: Negative Respiratory: Negative Positive: Rash All Other Systems Reviewed And Are Negative: Yes Physical Exam Triage Information Reviewed: Yes Vital Signs On Initial Exam: Initial Vitals Temp Pulse Resp BP Pulse Ox 96.2 F 101 18 128/99 97 04/19/19 08:02 04/19/19 08:02 04/19/19 08:02 04/19/19 08:02 04/19/19 08:02 Vital Signs Reviewed: Yes Appearance: Positive: Well-Appearing - Pt. sitting on bed in NAD. Skin: Positive: Warm, Dry, Other - Diffuse macular rash noted to right arm, trunk and face. No blisters or vesicles. Negative nikolsky sign. Healing skin graft to right hand and healing wound to right mid arm. Head/Face: Positive: Normal Head/Face Inspection Eyes: Positive: Normal, EOMI ENT: Positive: Pharynx normal Neck: Positive: Supple Respiratory/Lung Sounds: Positive: Clear to Auscultation, Breath Sounds Present Cardiovascular: Positive: Normal, RRR Neurological: Positive: Normal, CN Intact II-III Psychiatric: Positive: Affect/Mood Appropriate Procedures - Sedation Patient Received Moderate/Deep Sedation with Procedure: No Diagnostics - Vital Signs Vital Signs Temp Pulse Resp BP Pulse Ox 04/19/19 09:14 98.1 F 85 17 117/71 93 04/19/19 08:02 96.2 F 101 18 128/99 97 - Laboratory Lab Statement: Any lab studies that have been ordered have been reviewed, and results considered in the medical decision making process. Course/Dx - Course Course Of Treatment: Pt. with likely allergic rxn to topical antiobiotic. No signs of anaphylaxis. Discussed with Dr. Costa. Will place on a course of prednisone. To continue benadryl. To avoid triple antibx ointment in the future. Will return to er if sxs worsen otherwise f.u with his surgeon and pcp. - Differential Diagnoses - Skin Complaint Differential Diagnoses: Allergic Reaction, Cellulitis, Contact Dermatitis - Diagnoses Provider Diagnoses: Allergic reaction caused by a drug Discharge ED - Sign-Out/Discharge Documenting (check all that apply): Patient Departure - Discharge Plan Condition: Good Disposition: HOME Prescriptions: predniSONE 50 mg TAB [Deltasone 50 mg TAB] 50 mg PO DAILY #5 tab Patient Education Materials: Antibiotic Medication Allergy (ED) Referrals: Bill Deshpande MD [Primary Care Provider] - Additional Instructions: Follow up with you PCP in 2-3 days for recheck Prednisone as directed Continue benadryl as directed Return to ER if symptoms change or worsen - Billing Disposition and Condition Condition: GOOD Disposition: Home
== END 2019-04-19 09:14 | disposition home or self-care (01) ==
LOC: ED 07:59
DX: L25.1 Unspecified contact dermatitis due to drugs in contact with skin (principal); T49.0X5A Adverse effect of local antifungal, anti-infective and anti-inflammatory drugs, initial encounter; Y92.9 Unspecified place or not applicable; E11.9 Type 2 diabetes mellitus without complications; Z79.4 Long term (current) use of insulin; Z79.84 Long term (current) use of oral hypoglycemic drugs; Z79.82 Long term (current) use of aspirin; I10 Essential (primary) hypertension; Z79.899 Other long term (current) drug therapy; Z95.5 Presence of coronary angioplasty implant and graft; F17.210 Nicotine dependence, cigarettes, uncomplicated
CPT/HCPCS: 99282

== ENCOUNTER 2023-11-02 14:49 | Inpatient (IN) ==
[2023-11-02 15:28] LABS: ABS Basophils 0.1 10^3/uL (0.0-0.1); ABS Eosinophils 0.3 10^3/uL (0.0-0.5); ABS Lymphocytes 2.3 10^3/uL (1.0-4.8); ABS Monocytes 0.8 10^3/uL (0.0-1.1); ABS Neutrophils 4.5 10^3/uL (1.5-7.6); ABS Nucleated RBC 0.01 10^3/ul; Eosinophil % 3.5 %; Hematocrit 47.5 % (38-53); Hemoglobin 16.1 g/dL (13.2-16.3); Lymphocyte % 29.1 %; Mean Corpuscular Hemoglobin 29.7 pg (27-33); Mean Corpuscular Volume 87.3 fL (80-97); Mean Platelet Volume 8.4 fL (7.5-11.2); Nucleated Red Blood Cells % 0.1 %/100WBC (0.0-0.8); Platelet Count 237 10^3/uL (150-450); Red Blood Count 5.44 10^6/uL (4.06-5.63); Red Cell Distribution Width 14.3 % (12-17)
[2023-11-02 15:35] LABS: INR 1.01 (0.85-1.14)
[2023-11-02 15:51] LABS: ALT 24 U/L (7-52); AST 40 U/L (13-39); Albumin/Globulin Ratio 1.8 (1-3); Alkaline Phosphatase 90 U/L (35-149); Anion Gap 7 mmol/L (2-16); Blood Urea Nitrogen 14 mg/dL (6-24); C Reactive Protein < 1.00 mg/L (<8.01); CO2 Carbon Dioxide 27 mmol/L (22-32); Calcium 9.2 mg/dL (8.6-10.3); Chloride 106 mmol/L (101-111); Creatinine, Serum 0.91 mg/dL (0.67-1.17); Globulin 2.2 g/dL (2-4); Glucose 196 mg/dL (70-100); Lipase 22 U/L (11.0-82.0); Sodium 140 mmol/L (135-145); Total Bilirubin 0.4 mg/dL (0.2-1.0); Total Protein 6.2 g/dL (6.4-8.9)
[2023-11-02 15:58] LABS: High Sens Troponin Baseline 4 pg/mL (<20)
[2023-11-02] MEDS: Iodixanol (CONTRAST) 320 MG/ML 100 ML SDV IV ONE (16:40)
[2023-11-02 17:03] LABS: High Sensitivity Troponin 1 Hr 4 pg/mL (<20)
[2023-11-02 17:18] LABS: Urine Appearance Clear; Urine Bilirubin Negative (Negative); Urine Blood Negative (Negative); Urine Color Light-Yellow; Urine Glucose 4+ (>=1000 mg/dL) (Negative); Urine Ketones Negative (Negative); Urine Nitrite Negative (Negative); Urine Protein Negative (Negative); Urine Urobilinogen Negative (Negative)
[2023-11-02] MEDS: Morphine 4 MG/ML VIAL (1 ml) IV ONE ×2 (19:03→22:38)
[2023-11-02] MEDS: Lactated Ringers 1000 ml BAG 1,000 ML IV ONE (22:18)
[2023-11-02 23:38] LABS: Albumin 3.5 g/dL (3.2-5.2); Albumin/Globulin Ratio 1.8 (1-3); Direct Bilirubin 0.4 mg/dL (0.03-0.18); Globulin 1.9 g/dL (2-4); Indirect Bilirubin 0.6 mg/dL (0.3-1.0); Total Protein 5.4 g/dL (6.4-8.9)
[2023-11-03] MEDS ORDERED: Dextrose 50% Syringe 50 ml 25 GM/50 ML SYRINGE IV PUSH PRN (02:58)
[2023-11-03] MEDS: Heparin 5000 UNITS/ML 1 mL VIAL SUBCUT SCH (05:26)
[2023-11-03] MEDS: Lactated Ringers 1000 ml BAG 1,000 ML IV SCH ×2 (05:26→17:39)
[2023-11-03] MEDS: Insulin GLARGINE 100 un/ml 10 ml VIAL SUBCUT ONE (05:26)
[2023-11-03] MEDS: Morphine 2 MG/ML SYRINGE IV PRN (05:41)
[2023-11-03 05:51] LABS: ABS Basophils 0.1 10^3/uL (0.0-0.1); ABS Eosinophils 0.3 10^3/uL (0.0-0.5); ABS Lymphocytes 1.5 10^3/uL (1.0-4.8); ABS Monocytes 1.1 10^3/uL (0.0-1.1); ABS Nucleated RBC 0.01 10^3/ul; Eosinophil % 2.8 %; Hematocrit 48.5 % (38-53); Hemoglobin 16.5 g/dL (13.2-16.3); Mean Corpuscular Hemoglobin 29.9 pg (27-33); Mean Corpuscular Hgb Conc 34.1 g/dL (31-36); Mean Corpuscular Volume 87.6 fL (80-97); Mean Platelet Volume 8.2 fL (7.5-11.2); Nucleated Red Blood Cells % 0.1 %/100WBC (0.0-0.8); Platelet Count 216 10^3/uL (150-450); Red Blood Count 5.54 10^6/uL (4.06-5.63); Red Cell Distribution Width 14.2 % (12-17); White Blood Count 9.9 10^3/uL (3.6-10.2)
[2023-11-03 06:28] LABS: Albumin 3.9 g/dL (3.2-5.2); Albumin/Globulin Ratio 1.8 (1-3); Calcium 8.4 mg/dL (8.6-10.3); Creatinine, Serum 0.68 mg/dL (0.67-1.17); Globulin 2.2 g/dL (2-4); Potassium 3.6 mmol/L (3.5-5.0); Total Bilirubin 0.9 mg/dL (0.2-1.0); Total Protein 6.1 g/dL (6.4-8.9); eGFR CKD-EPI 98.1 (>60)
[2023-11-03] MEDS ORDERED: Morphine 2 MG/ML SYRINGE IV PRN (09:02)
[2023-11-03] MEDS: Aspirin EC 81 mg TAB.EC (enteric coated) PO SCH (09:37)
[2023-11-03] MEDS: Empagliflozin 25 MG TAB PO SCH (09:37)
[2023-11-03] MEDS: D5LR 1000 ml BAG 1,000 ML IV SCH (16:58)
[2023-11-03] MEDS: Nicotine GUM 2MG FRUIT FLAVOR PO PRN (17:08)
[2023-11-03] MEDS: Insulin GLARGINE 100 un/ml 10 ml VIAL SUBCUT SCH (21:46)
[2023-11-04 08:42] LABS: Calcium 8.3 mg/dL (8.6-10.3); Creatinine, Serum 0.75 mg/dL (0.67-1.17); Potassium 3.6 mmol/L (3.5-5.0); eGFR CKD-EPI 95.3 (>60)
[2023-11-04] MEDS ORDERED: ceFAZolin VIAL 2 GM in NS 0.9% 100 ml BAG 100 ML IVPB ONE (10:28)
[2023-11-04] MEDS ORDERED: ceFAZolin 2 GM PREMIX 2 GM/50 ML BAG ONE (11:34)
[2023-11-04] MEDS ORDERED: Lidocaine 2% PF 5 ML VIAL ONE (12:12)
[2023-11-04] MEDS ORDERED: Propofol 10 MG/ML 20 ML BTL ONE (12:12)
[2023-11-04] MEDS ORDERED: Ondansetron 4 mg VIAL 2 MG/ML 2 ml VIAL ONE ×2 (12:12→14:56)
[2023-11-04] MEDS ORDERED: Midazolam 2 mg/2 ml VIAL 1 mg/ml 2 ml VIAL (2 mg) ONE (12:13)
[2023-11-04] MEDS ORDERED: fentaNYL 100 mcg/2 ml 50 MCG/ML VIAL ONE (12:13)
[2023-11-04] MEDS ORDERED: Rocuronium 50 mg VIAL 10 mg/ml 5 ml VIAL (50 mg) ONE ×2 (12:13→13:53)
[2023-11-04] MEDS ORDERED: Bupivacaine 0.25% EPI 200,000 30 ML SDV ONE (12:24)
[2023-11-04] MEDS ORDERED: Buffered Lidocaine 1% SYRIN 1 ml INTRADERM ONE (12:25)
[2023-11-04] MEDS ORDERED: Acetaminophen IV 1 GM/100ML 1,000 MG/100 ML BAG IV ONE (12:25)
[2023-11-04] MEDS ORDERED: fentaNYL 100 mcg/2 ml 50 MCG/ML VIAL IV PRN (12:25)
[2023-11-04] MEDS ORDERED: Scopolamine 1 mg/72hr PATCH TRANSDERM ONE (12:25)
[2023-11-04] MEDS ORDERED: Naloxone 0.4 mg VIAL 0.4 mg/ml 1 ml VIAL IV PRN (12:25)
[2023-11-04] MEDS ORDERED: Lactated Ringers 1000 ml BAG 1,000 ML IV SCH (13:00)
[2023-11-04] MEDS ORDERED: NS 0.45% 1000 ml BAG 1,000 ML IV SCH (13:00)
[2023-11-04] MEDS ORDERED: Metoclopramide 5 MG/ML VIAL (10 mg) ONE (14:55)
[2023-11-04] MEDS: Metoclopramide 5 MG/ML VIAL (10 mg) IV PRN (14:56)
[2023-11-04] MEDS: Ondansetron 4 mg VIAL 2 MG/ML 2 ml VIAL IV PRN (14:57)
[2023-11-04] MEDS: ceFAZolin 2 GM/50 ML BAG IV ONE (15:58)
[2023-11-04 16:40] VITALS: BP 140/79
== END 2023-11-04 17:00 | disposition home or self-care (01) | DRG 419 ==
LOC: ED 14:49 → EDHOLD 14:49 → MED 11-03 15:44
PROVIDERS: ADMIT Hospitalist; ATTEND Hospitalist